=== PATIENT | male | born 2005 | race Hispanic/Latino ===

== ENCOUNTER 2025-03-10 19:58 | Emergency (ER) | payer BC, MEDICAID ==
[~2025-03-10] VITALS: Ht 160 cm; Wt 97.5 kg
[2025-03-10] MEDS: morPHINE 2 MG SYG IM ONE (21:45)
[2025-03-10] MEDS: ketOROlac 60 MG VIAL (30MG/ML) IM ONE (21:45)
[2025-03-10 22:17] VITALS: BP 132/67; PULSE 84; RESP 19; TEMP 98.1; O2SAT 99
[2025-03-10] MEDS ORDERED: AMOX1TAB16 PO (22:19)
[2025-03-10] MEDS ORDERED: IBUP-2077 PO (22:19)
--- NOTE | 2025-03-10 22:19 | ERN ---
ED Note History of Present Illness Stated Complaint: CRACKED TOOTH Chief Complaint: Tooth Ache/Pain Time Seen by MD: 20:13 Time Seen by Midlevel: 20:13 Dictation: The patient is a 20-year-old with no past medical history who presents to the emergency department with complaints of right lower tooth ache. Patient reports his tooth broke after they removed his wisdom tooth a while back. Reports he went to go visit his dentist last week but reports that they are waiting for his gums to heal before they tried to remove the broken tooth. Patient denies any fevers. Allergies: Coded Allergies: No Known Allergies (Unverified Allergy, Unknown, 03/10/25) Past Medical History Past Medical History: No Pertinent History Surgical History: None RN Note Reviewed/Agreed w/PFSH: Yes Review of System Dictation Constitutional: Negative for fever,chills, and weight loss Eyes: Negative for injury, pain,redness, and discharge ENT: Negative for injury,pain or swelling positive for right tooth pain Cardiovascular: Negative for chest pain, palpitations, and edema Respiratory: Negative for shortness of breath, cough, and wheezing, Abdomen/GI: Negative for abdominal pain, nausea, vomiting, diarrhea, and constipation Back: Negative for injury and pain : Negative for injury, bleeding and discharge MS/Extremity: Negative for injury and deformity Skin: Negative for rash, and discoloration Neuro: Negative for headache, weakness, numbness, tingling, and seizure Psych: Negative for suicide ideation, homicidal ideation, and hallucinations Initial Vital Sign VS Vital Signs Date Time Temp Pulse Resp B/P (MAP) Pulse Ox O2 Delivery O2 Flow Rate FiO2 03/10/25 21:03 98.1 78 20 172/98 100 Room Air Physical Exam Dictation Vital Signs reviewed General Appearance: Alert, oriented x 3, no acute distress, well developed, n ourished. Head and Face: non-traumatic. Eyes: PERRL, pink conjunctivas, eyelid no trauma, anterior chamber with arcus senilis. Ears: Pinnas intact and no signs of trauma or erythema ear canals clear and no discharge TM no erythema Nose: No discharge, no bleeding. Oropharynx: Mouth normal, tongue pink. Chipped 31st tooth. No abscess, no drainage, no cheek swelling pharynx clear,no erythema, tonsils no exudates, no abscesses noted, mucous membrane moist Neck: Supple, non-tender, no thyromegaly, no masses, no JVD, no bruits Breast:Deferred Chest:No tenderness, no crepitus, no paradoxical movement, no retractions Lungs:Clear, well-ventilated, symmetric, no rales, no wheezing, no rhonchi, no stridor, good breath sounds bilaterally Heart: Regular rate, regular rhythm, no murmur, no gallops Vascular: no peripheral edema, Abdomen: Soft, positive bowel sounds, nondistended, no guarding, nontender, no rebound, no masses no hepatomegaly, no splenomegaly, no Huynh's sign, no hernias. Rectal: Deferred Genital: Deferred Neurological: Normal speech, motor function intact, sensory function intact Musculoskeletal: Neck nontender, full range of motion, back nontender, full range of motion, Extremities: nontender, full range of motion Skin: Color pink, dry, no turgor, no rash, no lacerations, no abrasions, no contusions. Lymphatic: Deferred Results (Laboratory/Radiology) Labs Reviewed?: Yes ED Course ED Course Orders Procedure Category Date Status Time Ketorolac 60mg/2ml PHA 03/10/25 Complete (Toradol 60mg/2ml) 21:00 Morphine 2mg Syg PHA 03/10/25 Complete (Morphine 2mg Syg) 21:00 Current Medications Medications (Trade) Dose Ordered Sig/Julio Route PRN Reason Start Time Stop Time Status Last Admin Dose Admin Ketorolac Tromethamine (toRADol 60MG/ 2ML) 60 mg ONCE ONCE IM 03/10/25 21:00 03/10/25 21:05 DC 03/10/25 21:45 Morphine Sulfate (morPHINE 2MG SYG) 2 mg ONCE ONCE IM 03/10/25 21:00 03/10/25 21:05 DC 03/10/25 21:45 Vital Signs Date Time Temp Pulse Resp B/P (MAP) Pulse Ox O2 Delivery O2 Flow Rate FiO2 03/10/25 21:03 98.1 78 20 172/98 100 Room Air Medical Decision Making MDM The patient is a 20-year-old with no past medical history who presents to the emergency department with complaints of right lower tooth ache. Patient reports his tooth broke after they removed his wisdom tooth a while back. Reports he went to go visit his dentist last week but reports that they are waiting for his gums to heal before they tried to remove the broken tooth. Patient denies any fevers. Patient with a right lower dental pain. Thirty-first dental tooth cracked. No signs of abscess, airway intact patient given pain medication and instruct him he needs to follow up with his dentist. Patient in no acute distress, nontoxic appearance. We will be discharged to follow up with PCP. Differential diagnosis: Dental pain, dental fracture, dental decay Need for hospitalization: Patient does not meet criteria for hospitalization. There are no social concerns with this patient. DX & DISP Disposition: Discharge Departure Impression: Primary Impression: Pain, dental Additional Impression: Pain due to dental trauma Condition: Stable Scripts Amoxicillin/Potassium Clav (Amox Tr-K Clv 875-125 mg Tab) 875 Mg-125 Mg Tablet 1 EACH PO BID for 5 Days, #10 TAB 0 Refills Prov: MAYANK MERIDA 03/10/25 Ibuprofen (Ibuprofen 800 mg Tab) 800 Mg Tab 800 MG PO Q8H PRN for fever or pain, #30 TAB 0 Refills Prov: MAYANK MERIDA 03/10/25 Additional Instructions: Please follow up with your dentist as soon as possible. Take your medications as prescribed. If you develop fevers, severe swelling please return to ER. FOLLOW-UP WITH PRIMARY CARE PROVIDER IN 1 TO 2 DAYS. TAKE MEDICATIONS DIRECTED HERE IN THE EMERGENCY ROOM. OKAY TO CONTINUE HOME MEDICATIONS UNLESS OTHERWISE DISCUSSED DURING YOUR VISIT IN THE EMERGENCY ROOM TODAY. RETURN TO YOUR NEAREST EMERGENCY ROOM IF SYMPTOMS WORSEN OR IF THERE IS NO IMPROVEMENT. CALL 911 IF YOU NEED IMMEDIATE ASSISTANCE. TAKE TYLENOL OR MOTRIN [id number] NEEDED AND IF NO CONTRAINDICATIONS ARE PRESENT. INCREASE ORAL HYDRATION. A WOUND CULTURE OR URINE CULTURE WAS ORDERED HERE IN THE EMERGENCY ROOM DEPARTMENT PLEASE FOLLOW-UP WITH PRIMARY CARE PROVIDER AND ADVISE THEM TO GET REPEAT PORTS FROM OUR FACILITY. IF YOU HAD ANY MAR WRAP/SPLINTS THAT WERE APPLIED HERE, PLEASE DO NOT REMOVE THEM UNTIL YOU SEE YOUR PRIMARY CARE OR SPECIALTY. Referrals: SELF,REFERRAL (PCP) Time of Disposition: 22:16 I have reviewed the case, and I agree with, Diagnosis and Plan MAYANK MERIDA March 10, 2025 22:19
== END 2025-03-10 22:23 | disposition home or self-care (01) ==
LOC: EDH 19:58
DX: K08.89 Other specified disorders of teeth and supporting structures (principal)
CPT/HCPCS: 99284; 96372 ×2; J1885; J2270